=== PATIENT | male | born 1970 | race Caucasian/White ===

== ENCOUNTER 2018-10-13 15:34 | Emergency (ER) | payer OTHER, BC, SELFPAY ==
[2018-10-13 15:35] VITALS: BP 145/104; PULSE 94; RESP 16; TEMP 36.6; O2SAT 99; BMI 29.6
--- NOTE | 2018-10-13 16:06 | ED.DCSUM_ITS ---
- ER Visit Summary Date of Service: 10/13/18 Chief Complaint: Finger laceration History of Present Illness: The patient is a 47 M who sustained a right index finger laceration while at work today. Unknown last tetanus. He is right-hand dominant. Physical Examination: Afebrile vital signs stable There is a 2.5 cm laceration to the lateral aspect of the right index finger. There is venous oozing. Distally he has excellent capillary refill and preserved sensation. Tendon function normal. Emergency Department Course and Treatment: The wound was locally anesthetized using 1% lidocaine. It was washed with Shur-Clens and explored. Gently irrigated with normal saline. Was closed using a total of 5 simple interrupted 4-0 Ethilon sutures. Tetanus is updated with Adacel. Wound will be dressed. Follow-up is with [facility] in 10 days for suture removal Impression: 1. 2.5 cm right index finger laceration with repair 2. Tetanus update This note was generated with [employer] dictation software. It may contain incorrect words, spelling, and punctuation that were not noted in review of the chart prior to signing ED Disposition - Plan for ED Patient: Disposition: Home or Assisted Living Instructions: ED Laceration Hand Referrals: [facility] [[facility] OF PHYSICIANS] - 10 Day for suture removal
[2018-10-13] MEDS: Diphth,Pertuss(Acell),Tet Vac 0.5 ML Vial IM (16:12)
[2018-10-13 16:43] VITALS: RESP 18
== END 2018-10-13 16:43 | disposition home or self-care (01) ==
PROVIDERS: Emergency Provider Emergency Medicine
DX: S61.210A Laceration without foreign body of right index finger without damage to nail, initial encounter (principal); W45.8XXA Other foreign body or object entering through skin, initial encounter; Y93.9 Activity, unspecified; Y92.9 Unspecified place or not applicable; Y99.0 Civilian activity done for income or pay; Z23 Encounter for immunization
CPT/HCPCS: 12001; 90471; 90715; 99282; A4216

== ENCOUNTER → 2023-10-25 | Outpatient (CLI) | payer BC, SELFPAY ==
--- NOTE | 2023-10-25 09:01 | NEURO_ITS ---
NCS and/or EMG Patient Report Ordering Doctor: Jessie Adamson NP DATE OF SERVICE: 10/25/23 Markos has complaints of numbness and tingling in both hands. Symptoms have been persistent for greater than 2 years. Electrodiagnostic findings: Left median motor nerve demonstrates prolonged distal latency with normal amplitude and normal conduction velocity. Right median motor nerve demonstrates prolonged latency with normal amplitude and reduced conduction velocity. Ulnar motor response is within normal limits betty aterally. Normal median and ulnar F?waves. Prolonged median sensory latency at the wrist bilaterally. Normal ulnar and radial sensory responses. Needle EMG testing was performed in the upper limbs. All muscles tested showed no evidence of denervation with normal motor unit action potentials. Electrodiagnostic impression: This is an abnormal study of the upper limbs 1. Electrodiagnostic findings demonstrate bilateral median mononeuropathy. This is consistent with a mild bilateral carpal tunnel syndrome. Multi Select Codes Neurology Neurology Interp Codes: 33707-59 Musc test done w/n test comp (interp) (2) and 50697-83 Nrv cndj test 13/> studies (interp)
== END | disposition home or self-care (01) ==
PROVIDERS: PCP Internal Medicine; Referring Provider Nurse Practitioner; Visit Provider Nurse Practitioner
DX: R20.0 Anesthesia of skin (principal)
CPT/HCPCS: 95886; 95913